=== PATIENT | female | born 1990 | race Two or more races ===

== ENCOUNTER 2016-07-01 15:25 | Emergency (ER) | payer MEDICAID ==
[2016-07-01] MEDS ORDERED: DIPHENHYDRAMINE HCL 50 MG/1 ML VIAL ONE (16:19)
[2016-07-01] MEDS ORDERED: METOCLOPRAMIDE HCL 5 MG/ML 2ML VIAL ONE (16:19)
[2016-07-01] MEDS ORDERED: SODIUM CHLORIDE 0.9% 1,000 ML ONE (16:19)
[2016-07-01 16:41] LABS: URINE BILIRUBIN NEGATIVE (NEGATIVE); URINE BLOOD NEGATIVE (NEGATIVE); URINE GLUCOSE (UA) NEGATIVE (NEGATIVE); URINE LEUKOCYTE ESTERASE TRACE (NEGATIVE); URINE NITRITE NEGATIVE (NEGATIVE); URINE PROTEIN 1+ (NEGATIVE); URINE UROBILINOGEN NORMAL (0-1 mg/dl)
[2016-07-01 16:42] LABS: HCG,QUALITATIVE URINE NEGATIVE
[2016-07-01 16:43] LABS: URINE APPEARANCE CLEAR; URINE COLOR DARK YELLOW
[2016-07-01 16:48] LABS: ABSOLUTE NEUTROPHIL COUNT 11.5 K/mm3 (1.8-7.7); BASO % 0.1 % (0.2-1.0); HEMATOCRIT 39.5 % (37.0-47.0); HEMOGLOBIN 13.6 gm/l (12.0-16.0); IMM NEUT # 0.1 K/mm3 (0-0.2); IMM NEUT% 0.5 % (0-1); LYMPH # 1.1 (1.0-4.8); LYMPH % 8.7 % (15-45); MEAN CELL VOLUME 89.6 fl (81.0-99.0); MEAN CORPUSCULAR HEMOGLOBIN 30.8 pg (27.0-31.0); MEAN CORPUSCULAR HGB CONC 34.4 g/dl (33.0-37.0); MEAN PLATELET VOLUME 10.6 fl (7.4-10.4); MONO # 0.3 (0.0-0.8); MONO % 2.6 % (4-12); NEUT % 88.1 % (43-75); PLATELET COUNT 258 K/mm3 (130-400); RED CELL DISTRIBUTION WIDTH 11.4 % (11.5-14.5)
[2016-07-01 16:57] LABS: ALB/GLOB RATIO 1.3 (>1.0); ALBUMIN 4.6 gm/dL (3.5-5.7); CALCIUM 9.4 mg/dL (8.6-10.3)
[2016-07-01 17:09] LABS: URINE BACTERIA 1+; URINE RBC 0 /hpf; URINE WBC 0-1 /hpf
[2016-07-01] MEDS ORDERED: IBUPROFEN 600 MG TABLET ONE (17:33)
== END 2016-07-01 17:47 | disposition home or self-care (01) ==
LOC: ED 15:25
DX: G43.909 Migraine, unspecified, not intractable, without status migrainosus (principal); R42 Dizziness and giddiness; R00.2 Palpitations; R63.1 Polydipsia; R11.0 Nausea
CPT/HCPCS: 81025; 85025; 80053; 84443; 81001; 96375; 99283 ×2; 96374; 96361; 82962; J1200; A9270; J2765; J7030